=== PATIENT | female | born 1960 | race Caucasian/White ===

== ENCOUNTER 2017-03-26 08:05 | Outpatient (CLI) | payer MEDICARE, OTHER ==
--- OUTSIDE RECORDS SUMMARY | 2017-03-26 08:07 | XMS | Clinical Summary ---
:1960 Author Organization [facility] Address [address] [place] [address] Phone Care Team Providers Name Role Phone , Primary Care Provider Unavailable Allergies Not on File Current Medications Not on file Active Problems Not on file Social History Tobacco Use Types Packs/Day Years Used Date Never Assessed Sex Assigned at Date Recorded Not on file Last Filed Vital Signs Not on file Plan of Treatment Not on file Results Not on filefrom Last 3 Months
--- NOTE | 2017-03-26 10:37 | CT ---
CT ABDOMEN AND PELVIS NONCONTRAST: History: Abdominal pain. Abdominal hernia. K45.8 Comparison: 11-10-13 FINDINGS: The lung bases are now clear. Oral contrast is present within the distal esophagus. Cysts arise from the cortex of the kidneys. Each renal collecting system and ureter are decompressed, as is the urin poppy bladder. Oral contrast administered. There is no evidence of bowel obstruction. Lack of IV contr ast limits soft tissue evaluation. No bulky adenopathy is visible. Post-operative changes of the ant erior abdominal wall are apparent. No anterior abdominal wall hernia, inguinal hernia, or flank dann ia are apparent. Radiopaque densities at the left posterolateral flank soft tissues may represent re mnant from prior surgery. There are prominent degenerative changes of the lumbar spine. Post-operati ve changes of the pelvis are stable. IMPRESSION: 1. Incidental type findings are as detailed above. No evidence of abdominal wall hernia. 2. Gastroesophageal reflux. POS: [facility]
== END 2017-03-26 08:06 | disposition home or self-care (01) ==
LOC: CT 08:05
PROVIDERS: ATTEND Surgery
DX: K45.8 Other specified abdominal hernia without obstruction or gangrene (principal); K21.9 Gastro-esophageal reflux disease without esophagitis
CPT/HCPCS: 74176

== ENCOUNTER 2017-06-16 01:55 | Emergency (ER) | payer MEDICARE, OTHER ==
[2017-06-16] MEDS ORDERED: Lidocaine 1% w/Epinephrine 1:100K 20 ML VIAL ONE (02:13)
[2017-06-16] MEDS ORDERED: Lidocaine 1% 20 ML MDV ONE (02:13)
[2017-06-16] MEDS ORDERED: Amoxicillin/Potassium Clav 875 MG TAB ONE (03:15)
== END 2017-06-16 03:38 | disposition home or self-care (01) ==
LOC: SCSER 01:55
DX: S01.21XA Laceration without foreign body of nose, initial encounter (principal); E03.9 Hypothyroidism, unspecified; J45.909 Unspecified asthma, uncomplicated; F41.9 Anxiety disorder, unspecified; F31.9 Bipolar disorder, unspecified; W54.0XXA Bitten by dog, initial encounter
CPT/HCPCS: 12013; J2001

== ENCOUNTER 2022-08-26 07:46 | Inpatient (IN) | payer OTHER, MEDICARE ==
[2022-08-26] MEDS ORDERED: Ondansetron PF 4 MG/2 ML Vial IVP PRN (11:19)
[2022-08-26] MEDS ORDERED: Acetaminophen 325 MG TAB PO PRN (11:19)
[2022-08-26] MEDS ORDERED: Ipratropium/Albuterol 3 ML NEB NEB PRN (11:19)
[2022-08-26 11:57] VITALS: BMI 27.6
[2022-08-26 12:29] LABS: Hemoglobin 12.9 g/dL (12.0-16.0); Mean Corpuscular Hemoglobin 30.7 pg (27.0-31.0); Mean Corpuscular Volume 95.9 fl (78.0-98.0); Mean Platelet Volume 7.9 fL (7.4-10.4); Platelet Count 457 10x3/uL (130-400); RBC Distribution Width 13.7 % (11.5-14.5); Red Blood Cell (RBC) Count 4.21 mill/uL (4.20-5.40); White Blood Cell (WBC) Count 25.5 10x3/uL (4.8-10.8)
[2022-08-26 12:37] LABS: INR-International Normal Ratio 0.9; PTT 23.5 sec (22.9-36.1); Prothrombin Time 12.4 sec (12.0-14.7)
[2022-08-26] MEDS: Sodium Chloride 0.9% 1,000 ML IV SCH ×2 (12:46→22:16)
[2022-08-26 12:48] LABS: Band 22 % (5-11); Burr Cells SLIGHT = 2-5 cells (100X) (0-1/hpf); Lymphocytes 5 % (21-51); MDiff Complete? YES; Monocytes 5 % (0-10); Neutrophil 68 % (42-75); Platelet Morphology Comment Appears Increased
[2022-08-26 12:51] LABS: Acetaminophen Less than 10.0 mcg/mL (10.0-30.0); Alcohol Less than 10 mg/dL (Less than 10); Anion Gap 12 mmol/L (10-20); BUN (Urea Nitrogen) 9 mg/dL (9.8-20.1); Calc. Creatinine Clearance 99 mL/min (70-130); Carbon Dioxide 25 mmol/L (23-31); Chloride 109 mmol/L (98-107); Estimated GFR 99; Glucose 146 mg/dL (80-115); Magnesium 2.2 mg/dL (1.6-2.6); Phosphorus 3.6 mg/dL (2.3-4.7); Potassium 3.4 mmol/L (3.5-5.1); Salicylate Less than 8.0 mg/dL (15.0-30.0); Sodium 143 mmol/L (136-145)
[2022-08-26] MEDS ORDERED: Potassium Chloride 20 MEQ TAB PO SCH (13:00)
[2022-08-26] MEDS: Ipratropium/Albuterol 3 ML NEB NEB SCH ×2 (13:37→22:16)
[2022-08-26 13:51] LABS: Bilirubin Negative (Negative); Blood, Urine Negative (Negative); CAUTI Indications for Culture Alt mental st,lethar; Clarity Turbid (Clear); Glucose, Urine (Dipstick) Normal (Negative); Ketone, Urine Negative (Negative); Leukocyte Negative Leu/uL (Negative); Nitrite Negative (Negative); Protein, Urine (Dipstick) 10 mg/dL (Neg-Trace); RBC/HPF 0-3 HPF (0-3); Specific Gravity, Urine 1.017 (1.002-1.036); Squamous Epithelial 0-3 HPF (0-3); Urobilinogen Normal mg/dL (Less than 2); WBC/HPF 0-3 HPF (0-3)
[2022-08-26 13:52] LABS: Amphetamine Not Detected (NotDetected); Barbiturates Screen Not Detected (NotDetected); Benzodiazepine Screen Not Detected (NotDetected); Cocaine Metabolite Screen Not Detected (NotDetected); Methadone Not Detected (NotDetected); Methamphetamine Not Detected (NotDetected); Opiate Screen Detected (NotDetected); Oxycodone Screen Not Detected (NotDetected); Phencyclidine (PCP) Not Detected (NotDetected); THC/Cannabinoid Screen Not Detected (NotDetected); Tricyclic Screen Not Detected (NotDetected)
[2022-08-26 13:55] LABS: Bacteria/HPF 1+ HPF (None Seen)
[2022-08-26 13:56] LABS: Urine Culture Reflex No No
[2022-08-26] MEDS: Acetaminophen/Codeine 30-300mg Tablet PO SCH ×2 (18:21→23:47)
[2022-08-26] MEDS ORDERED: Morphine 2 MG/ML VIAL SLOW IVP PRN (20:17)
[2022-08-26] MEDS ORDERED: Melatonin 3 MG TAB PO SCH (22:00)
[2022-08-26] MEDS: DULoxetine 60 MG CAP PO SCH (22:14)
[2022-08-26] MEDS: Docusate 100 MG CAP PO SCH (22:15)
[2022-08-26] MEDS: Famotidine/PF 20 mg/2ml Vial SLOW IVP SCH (22:15)
[2022-08-26] MEDS: Gabapentin 300 MG CAP PO SCH (22:15)
[2022-08-26] MEDS: Fentanyl 100 MCG/2 ML VIAL SLOW IVP PRN (22:16)
[2022-08-27] MEDS: Ipratropium/Albuterol 3 ML NEB NEB SCH ×4 (01:35→20:33)
[2022-08-27] MEDS: Levothyroxine Sodium 88 MCG TAB PO SCH (05:13)
[2022-08-27] MEDS: Acetaminophen/Codeine 30-300mg Tablet PO SCH ×3 (05:13→17:47)
[2022-08-27] MEDS: Fentanyl 100 MCG/2 ML VIAL SLOW IVP PRN (05:13)
[2022-08-27 05:53] LABS: #Eosinphils 0.1 thou/uL (0.0-0.7); #Lymphocytes 1.8 thou/uL (1.20-3.40); #Monocytes 1.1 thou/uL (0.11-0.59); #Neutrophils 15.7 thou/uL (1.40-6.50); %Basophils 0.2 % (0.0-1.0); %Eosinophils 0.3 % (0.0-10.0); %Lymphocytes 9.4 % (21.0-51.0); %Monocytes 5.7 % (0.0-10.0); %Neutrophils 84.4 % (42.0-75.0); Hemoglobin 12.1 g/dL (12.0-16.0); Mean Corpuscular HGB CONC 31.6 g/dL (32.0-36.0); Mean Corpuscular Hemoglobin 30.3 pg (27.0-31.0); Mean Corpuscular Volume 95.8 fl (78.0-98.0); Mean Platelet Volume 8.1 fL (7.4-10.4); Platelet Count 409 10x3/uL (130-400); RBC Distribution Width 13.8 % (11.5-14.5); Red Blood Cell (RBC) Count 4.01 mill/uL (4.20-5.40); White Blood Cell (WBC) Count 18.6 10x3/uL (4.8-10.8)
[2022-08-27 06:07] LABS: Anion Gap 11 mmol/L (10-20); BUN (Urea Nitrogen) 7 mg/dL (9.8-20.1); Calc. Creatinine Clearance 129 mL/min (70-130); Calcium 8.1 mg/dL (7.8-10.44); Carbon Dioxide 22 mmol/L (23-31); Chloride 111 mmol/L (98-107); Estimated GFR 106; Glucose 97 mg/dL (80-115); Potassium 3.7 mmol/L (3.5-5.1); Sodium 140 mmol/L (136-145)
[2022-08-27] MEDS: Docusate 100 MG CAP PO SCH ×2 (09:03→21:57)
[2022-08-27] MEDS: Gabapentin 300 MG CAP PO SCH ×3 (09:04→21:57)
[2022-08-27] MEDS: Famotidine/PF 20 mg/2ml Vial SLOW IVP SCH (09:06)
[2022-08-27] MEDS: Cyclobenzaprine 10 MG TAB PO PRN (10:33)
[2022-08-27] MEDS: Lacosamide 50 mg Tablet PO SCH (10:34)
[2022-08-27] MEDS: Dextrose 5 %-0.45 % NaCl 1,000 ML IV SCH (21:51)
[2022-08-27] MEDS: clonazePAM 1 MG TAB PO SCH (21:57)
[2022-08-27] MEDS: OLANZapine 5 MG TAB PO SCH (21:59)
[2022-08-27] MEDS: tiZANidine HCl 4 MG TAB PO SCH (22:00)
[2022-08-27] MEDS: lamoTRIgine 100 MG TAB PO SCH (22:00)
[2022-08-27] MEDS: Melatonin 3 MG TAB PO SCH (22:01)
[2022-08-27] MEDS: DULoxetine 60 MG CAP PO SCH (22:02)
[2022-08-28] MEDS: Ipratropium/Albuterol 3 ML NEB NEB SCH ×4 (01:14→19:15)
[2022-08-28] MEDS: Acetaminophen/Codeine 30-300mg Tablet PO SCH ×4 (06:00→18:19)
[2022-08-28] MEDS ORDERED: Levothyroxine Sodium 88 MCG TAB PO SCH (06:00)
[2022-08-28] MEDS: Levothyroxine Sodium 88 MCG TAB PO SCH (07:52)
[2022-08-28] MEDS ORDERED: tiZANidine HCl 4 MG TAB PO PRN (08:38)
[2022-08-28 09:04] LABS: Hemoglobin 12.4 g/dL (12.0-16.0); Mean Corpuscular HGB CONC 35.8 g/dL (32.0-36.0); Mean Corpuscular Hemoglobin 34.4 pg (27.0-31.0); Mean Corpuscular Volume 96.2 fl (78.0-98.0); Mean Platelet Volume 8.9 fL (7.4-10.4); Platelet Count 261 10x3/uL (130-400); RBC Distribution Width 13.4 % (11.5-14.5); White Blood Cell (WBC) Count 22.2 10x3/uL (4.8-10.8)
[2022-08-28 09:25] LABS: Anion Gap 12 mmol/L (10-20); BUN (Urea Nitrogen) 11 mg/dL (9.8-20.1); Calc. Creatinine Clearance 132 mL/min (70-130); Carbon Dioxide 21 mmol/L (23-31); Chloride 107 mmol/L (98-107); Estimated GFR 107; Glucose 103 mg/dL (80-115); Magnesium 1.9 mg/dL (1.6-2.6); Phosphorus 2.9 mg/dL (2.3-4.7); Potassium 4.1 mmol/L (3.5-5.1); Sodium 136 mmol/L (136-145)
[2022-08-28] MEDS: clonazePAM 1 MG TAB PO SCH ×3 (09:27→20:18)
[2022-08-28] MEDS: Lacosamide 50 mg Tablet PO SCH (09:27)
[2022-08-28] MEDS: Docusate 100 MG CAP PO SCH ×2 (09:28→20:18)
[2022-08-28 09:41] LABS: Band 7 % (5-11); Burr Cells MODERATE= 6-15 cells (100X) (0-1/hpf); Lymphocytes 8 % (21-51); MDiff Complete? YES; Monocytes 4 % (0-10); Neutrophil 81 % (42-75); Platelet Morphology Comment Appears Adequate; Polychromasia SLIGHT = 2-3 cells (100X) (0-2/hpf)
[2022-08-28] MEDS ORDERED: diphenhydrAMINE 12.5 MG/5 ML UDCUP PO SCH (10:15)
[2022-08-28] MEDS ORDERED: PHOS-NAK 1 PKT PACK PO SCH (10:45)
[2022-08-28] MEDS: Gabapentin 300 MG CAP PO SCH ×3 (12:37→20:20)
[2022-08-28] MEDS: Dextrose 5 %-0.45 % NaCl 1,000 ML IV SCH (15:19)
[2022-08-28 15:34] LABS: Bilirubin Negative (Negative); Blood, Urine Negative (Negative); CAUTI Indications for Culture Dysuria,urgency,freq; Clarity Clear (Clear); Glucose, Urine (Dipstick) Normal (Negative); Ketone, Urine Negative (Negative); Leukocyte 25 Leu/uL (Negative); Nitrite Negative (Negative); Protein, Urine (Dipstick) Negative (Neg-Trace); RBC/HPF 0-3 HPF (0-3); Specific Gravity, Urine 1.013 (1.002-1.036); Squamous Epithelial 0-3 HPF (0-3); Urobilinogen Normal mg/dL (Less than 2); WBC/HPF 0-3 HPF (0-3)
[2022-08-28 15:35] LABS: Bacteria/HPF 1+ HPF (None Seen); Urine Culture Reflex No No
[2022-08-28] MEDS: Cyclobenzaprine 10 MG TAB PO PRN (15:59)
[2022-08-28] MEDS: Acetaminophen 325 MG TAB PO SCH (18:20)
[2022-08-28] MEDS: Rosuvastatin 10 MG TAB PO SCH ×2 (20:18→20:19)
[2022-08-28] MEDS: DULoxetine 60 MG CAP PO SCH (20:20)
[2022-08-28] MEDS: Melatonin 3 MG TAB PO SCH (21:52)
[2022-08-28] MEDS: OLANZapine 5 MG TAB PO SCH (21:52)
[2022-08-28] MEDS: lamoTRIgine 100 MG TAB PO SCH (21:52)
[2022-08-29] MEDS: Acetaminophen 325 MG TAB PO SCH ×4 (00:08→17:16)
[2022-08-29] MEDS: Acetaminophen/Codeine 30-300mg Tablet PO SCH ×2 (00:08→06:00)
[2022-08-29] MEDS: Ipratropium/Albuterol 3 ML NEB NEB SCH ×4 (00:43→18:11)
[2022-08-29] MEDS: Levothyroxine Sodium 88 MCG TAB PO SCH (05:59)
[2022-08-29 06:51] LABS: #Eosinphils 0.3 thou/uL (0.0-0.7); #Lymphocytes 2.3 thou/uL (1.20-3.40); #Monocytes 1.1 thou/uL (0.11-0.59); #Neutrophils 14.9 thou/uL (1.40-6.50); %Basophils 0.2 % (0.0-1.0); %Eosinophils 1.8 % (0.0-10.0); %Lymphocytes 12.3 % (21.0-51.0); %Monocytes 5.7 % (0.0-10.0); %Neutrophils 80.1 % (42.0-75.0); Mean Corpuscular HGB CONC 32.2 g/dL (32.0-36.0); Mean Corpuscular Hemoglobin 30.6 pg (27.0-31.0); Mean Corpuscular Volume 95.2 fl (78.0-98.0); Mean Platelet Volume 8.1 fL (7.4-10.4); Platelet Count 402 10x3/uL (130-400); Platelet Morphology Comment Appears Increased; RBC Distribution Width 13.1 % (11.5-14.5); White Blood Cell (WBC) Count 18.7 10x3/uL (4.8-10.8)
[2022-08-29 06:55] LABS: Anion Gap 13 mmol/L (10-20); BUN (Urea Nitrogen) 8 mg/dL (9.8-20.1); Calc. Creatinine Clearance 140 mL/min (70-130); Calcium 7.9 mg/dL (7.8-10.44); Carbon Dioxide 21 mmol/L (23-31); Chloride 108 mmol/L (98-107); Estimated GFR 108; Glucose 77 mg/dL (80-115); Magnesium 1.9 mg/dL (1.6-2.6); Phosphorus 3.1 mg/dL (2.3-4.7); Potassium 4.1 mmol/L (3.5-5.1); Sodium 138 mmol/L (136-145)
[2022-08-29] MEDS ORDERED: PHOS-NAK 1 PKT PACK PO SCH (08:00)
[2022-08-29] MEDS: Lacosamide 50 mg Tablet PO SCH (08:30)
[2022-08-29] MEDS: predniSONE 5 MG TAB PO SCH (08:30)
[2022-08-29] MEDS: Gabapentin 300 MG CAP PO SCH ×2 (08:30→20:06)
[2022-08-29] MEDS: Docusate 100 MG CAP PO SCH (08:30)
[2022-08-29] MEDS: clonazePAM 1 MG TAB PO SCH ×4 (08:30→20:08)
[2022-08-29] MEDS: tiZANidine HCl 4 MG TAB PO PRN (09:35)
[2022-08-29] MEDS ORDERED: diphenhydrAMINE 50 MG CAP PO PRN (11:30)
[2022-08-29] MEDS ORDERED: Moxifloxacin 0.5% Opth Drop 3 ML BOT L EYE SCH (12:00)
[2022-08-29] MEDS: Polymyxin B Sulf/Trimethoprim 10 ML OPHTH DROPS L EYE SCH ×6 (12:15→21:17)
[2022-08-29] MEDS: Moxifloxacin 0.5% Opth Drop 3 ML BOT L EYE SCH ×5 (14:23→21:17)
[2022-08-29] MEDS: prednisoLONE 1% Ophth Susp 5 ml Bottle L EYE SCH ×2 (15:17→20:08)
[2022-08-29] MEDS: VILAZODONE HCL 40 MG PO SCH ×3 (16:16→21:59)
[2022-08-29] MEDS: Lithium Carbonate 150 MG CAP PO SCH (17:16)
[2022-08-29] MEDS ORDERED: predniSONE 20 MG TAB PO SCH (19:30)
[2022-08-29] MEDS: Acetaminophen/Codeine 30-300mg Tablet PO PRN (20:03)
[2022-08-29] MEDS: OLANZapine 5 MG TAB PO SCH (20:04)
[2022-08-29] MEDS: lamoTRIgine 100 MG TAB PO SCH (20:04)
[2022-08-29] MEDS: Mycophenolate 250 MG CAP PO SCH (20:05)
[2022-08-29] MEDS: Senokot S 8.6-50 MG TAB PO SCH (20:08)
[2022-08-29] MEDS ORDERED: Nitrofurantoin Monohyd/M-Cryst 100 MG CAP PO SCH (21:00)
[2022-08-30] MEDS: Acetaminophen 325 MG TAB PO SCH ×5 (00:50→23:42)
[2022-08-30] MEDS ORDERED: predniSONE 20 MG TAB PO SCH ×2 (01:00→07:00)
[2022-08-30] MEDS: Ipratropium/Albuterol 3 ML NEB NEB SCH ×5 (03:01→23:35)
[2022-08-30] MEDS: Liothyronine Sodium 5 MCG TAB PO SCH (06:46)
[2022-08-30] MEDS: Levothyroxine Sodium 88 MCG TAB PO SCH (06:46)
[2022-08-30] MEDS: Moxifloxacin 0.5% Opth Drop 3 ML BOT L EYE SCH ×9 (06:52→23:43)
[2022-08-30] MEDS: Polymyxin B Sulf/Trimethoprim 10 ML OPHTH DROPS L EYE SCH ×9 (06:52→23:43)
[2022-08-30] MEDS ORDERED: diphenhydrAMINE 50 MG CAP PO SCH (07:00)
[2022-08-30 07:22] LABS: #Lymphocytes 0.6 thou/uL (1.20-3.40); #Monocytes 0.1 thou/uL (0.11-0.59); #Neutrophils 14.8 thou/uL (1.40-6.50); %Basophils 0.2 % (0.0-1.0); %Eosinophils 0.2 % (0.0-10.0); %Lymphocytes 3.6 % (21.0-51.0); %Monocytes 0.6 % (0.0-10.0); %Neutrophils 95.5 % (42.0-75.0); Hemoglobin 11.4 g/dL (12.0-16.0); Mean Corpuscular Hemoglobin 30.5 pg (27.0-31.0); Mean Corpuscular Volume 95.5 fl (78.0-98.0); Platelet Count 511 10x3/uL (130-400); RBC Distribution Width 13.1 % (11.5-14.5); Red Blood Cell (RBC) Count 3.74 mill/uL (4.20-5.40); White Blood Cell (WBC) Count 15.5 10x3/uL (4.8-10.8)
[2022-08-30] MEDS ORDERED: Morphine 2 MG/ML VIAL SLOW IVP SCH (09:15)
[2022-08-30] MEDS: Acetaminophen/Codeine 30-300mg Tablet PO PRN (09:39)
[2022-08-30] MEDS: Amlodipine 10 MG TAB PO SCH (10:06)
[2022-08-30] MEDS: Gabapentin 300 MG CAP PO SCH ×2 (10:27→21:11)
[2022-08-30] MEDS: clonazePAM 1 MG TAB PO SCH ×3 (10:28→20:58)
[2022-08-30] MEDS: tiZANidine HCl 4 MG TAB PO PRN ×2 (10:28→23:46)
[2022-08-30] MEDS: Lacosamide 50 mg Tablet PO SCH (10:45)
[2022-08-30] MEDS: Mycophenolate 250 MG CAP PO SCH ×2 (10:45→21:00)
[2022-08-30] MEDS: Lithium Carbonate 150 MG CAP PO SCH ×2 (10:45→17:29)
[2022-08-30] MEDS: Polyethylene Glycol 3350 17 GM Packet PO SCH (10:46)
[2022-08-30] MEDS: Senokot S 8.6-50 MG TAB PO SCH ×2 (10:46→20:58)
[2022-08-30] MEDS: prednisoLONE 1% Ophth Susp 5 ml Bottle L EYE SCH ×3 (10:48→20:56)
[2022-08-30] MEDS ORDERED: Iopamidol-M 300 61% 15 ML VIAL ONE (17:36)
[2022-08-30] MEDS: lamoTRIgine 100 MG TAB PO SCH (20:57)
[2022-08-30] MEDS: Rosuvastatin 10 MG TAB PO SCH (20:58)
[2022-08-30] MEDS: OLANZapine 5 MG TAB PO SCH (20:58)
[2022-08-30] MEDS: VILAZODONE HCL 40 MG PO SCH (21:18)
[2022-08-31] MEDS: Liothyronine Sodium 5 MCG TAB PO SCH (06:11)
[2022-08-31] MEDS: Moxifloxacin 0.5% Opth Drop 3 ML BOT L EYE SCH ×9 (06:11→22:02)
[2022-08-31] MEDS: Levothyroxine Sodium 88 MCG TAB PO SCH (06:11)
[2022-08-31] MEDS: Acetaminophen 325 MG TAB PO SCH ×4 (06:11→23:41)
[2022-08-31] MEDS: Polymyxin B Sulf/Trimethoprim 10 ML OPHTH DROPS L EYE SCH ×9 (06:12→22:02)
[2022-08-31] MEDS: Ipratropium/Albuterol 3 ML NEB NEB SCH ×3 (06:54→18:52)
[2022-08-31] MEDS: Lithium Carbonate 150 MG CAP PO SCH ×2 (08:14→17:58)
[2022-08-31] MEDS: Polyethylene Glycol 3350 17 GM Packet PO SCH (09:21)
[2022-08-31] MEDS: Senokot S 8.6-50 MG TAB PO SCH ×3 (09:21→21:48)
[2022-08-31] MEDS: Acetaminophen/Codeine 30-300mg Tablet PO PRN ×2 (09:23→20:01)
[2022-08-31] MEDS: Amlodipine 10 MG TAB PO SCH (09:24)
[2022-08-31] MEDS: clonazePAM 1 MG TAB PO SCH ×3 (09:25→21:48)
[2022-08-31] MEDS: Gabapentin 300 MG CAP PO SCH ×2 (09:26→21:47)
[2022-08-31] MEDS: Lacosamide 50 mg Tablet PO SCH (09:26)
[2022-08-31] MEDS: Mycophenolate 250 MG CAP PO SCH ×2 (09:27→21:47)
[2022-08-31] MEDS: prednisoLONE 1% Ophth Susp 5 ml Bottle L EYE SCH ×3 (09:31→21:49)
[2022-08-31] MEDS: predniSONE 5 MG TAB PO SCH (09:52)
[2022-08-31] MEDS: tiZANidine HCl 4 MG TAB PO PRN ×2 (12:00→22:02)
[2022-08-31] MEDS: lamoTRIgine 100 MG TAB PO SCH (21:45)
[2022-08-31] MEDS: OLANZapine 5 MG TAB PO SCH (21:46)
[2022-08-31] MEDS: Rosuvastatin 10 MG TAB PO SCH (21:47)
[2022-08-31] MEDS: VILAZODONE HCL 40 MG PO SCH (22:10)
[2022-09-01] MEDS: Ipratropium/Albuterol 3 ML NEB NEB SCH ×4 (03:40→21:09)
[2022-09-01] MEDS: Acetaminophen 325 MG TAB PO SCH ×4 (06:53→23:17)
[2022-09-01] MEDS: Levothyroxine Sodium 88 MCG TAB PO SCH (06:53)
[2022-09-01] MEDS: Liothyronine Sodium 5 MCG TAB PO SCH (06:53)
[2022-09-01] MEDS: Moxifloxacin 0.5% Opth Drop 3 ML BOT L EYE SCH ×9 (06:54→23:09)
[2022-09-01] MEDS: Polymyxin B Sulf/Trimethoprim 10 ML OPHTH DROPS L EYE SCH ×9 (06:54→23:09)
[2022-09-01] MEDS: Acetaminophen/Codeine 30-300mg Tablet PO PRN ×2 (06:59→15:05)
[2022-09-01] MEDS: Lacosamide 50 mg Tablet PO SCH (09:31)
[2022-09-01] MEDS: Gabapentin 300 MG CAP PO SCH ×2 (09:31→19:56)
[2022-09-01] MEDS: Lithium Carbonate 150 MG CAP PO SCH ×2 (09:31→16:40)
[2022-09-01] MEDS: Senokot S 8.6-50 MG TAB PO SCH ×3 (09:33→20:00)
[2022-09-01] MEDS: Mycophenolate 250 MG CAP PO SCH ×2 (09:33→19:59)
[2022-09-01] MEDS: Amlodipine 10 MG TAB PO SCH (09:34)
[2022-09-01] MEDS: predniSONE 5 MG TAB PO SCH (09:35)
[2022-09-01] MEDS: clonazePAM 1 MG TAB PO SCH ×3 (09:35→19:57)
[2022-09-01] MEDS: Polyethylene Glycol 3350 17 GM Packet PO SCH ×2 (09:35→09:41)
[2022-09-01] MEDS: prednisoLONE 1% Ophth Susp 5 ml Bottle L EYE SCH ×3 (09:36→20:11)
[2022-09-01] MEDS: lamoTRIgine 100 MG TAB PO SCH (19:57)
[2022-09-01] MEDS: tiZANidine HCl 4 MG TAB PO PRN (19:57)
[2022-09-01] MEDS: OLANZapine 5 MG TAB PO SCH (19:58)
[2022-09-01] MEDS: Rosuvastatin 10 MG TAB PO SCH (19:59)
[2022-09-01] MEDS: VILAZODONE HCL 40 MG PO SCH (20:10)
[2022-09-02] MEDS: Ipratropium/Albuterol 3 ML NEB NEB SCH ×4 (00:32→18:59)
[2022-09-02] MEDS: Melatonin 3 MG TAB PO PRN ×2 (00:52→21:59)
[2022-09-02] MEDS: Acetaminophen 325 MG TAB PO SCH ×4 (00:52→16:49)
[2022-09-02] MEDS: Acetaminophen/Codeine 30-300mg Tablet PO PRN ×3 (03:21→20:08)
[2022-09-02] MEDS: Levothyroxine Sodium 88 MCG TAB PO SCH (06:31)
[2022-09-02] MEDS: Liothyronine Sodium 5 MCG TAB PO SCH (06:31)
[2022-09-02] MEDS: Polymyxin B Sulf/Trimethoprim 10 ML OPHTH DROPS L EYE SCH ×9 (06:34→23:07)
[2022-09-02] MEDS: Moxifloxacin 0.5% Opth Drop 3 ML BOT L EYE SCH ×9 (06:34→23:07)
[2022-09-02] MEDS: Lithium Carbonate 150 MG CAP PO SCH ×2 (09:29→16:50)
[2022-09-02] MEDS: Gabapentin 300 MG CAP PO SCH ×2 (09:29→20:07)
[2022-09-02] MEDS: Mycophenolate 250 MG CAP PO SCH ×2 (09:29→20:06)
[2022-09-02] MEDS: Senokot S 8.6-50 MG TAB PO SCH ×2 (09:30→20:08)
[2022-09-02] MEDS: Lacosamide 50 mg Tablet PO SCH (09:30)
[2022-09-02] MEDS: predniSONE 5 MG TAB PO SCH (09:30)
[2022-09-02] MEDS: prednisoLONE 1% Ophth Susp 5 ml Bottle L EYE SCH ×3 (09:30→20:06)
[2022-09-02] MEDS: clonazePAM 1 MG TAB PO SCH ×3 (09:33→20:06)
[2022-09-02] MEDS: Polyethylene Glycol 3350 17 GM Packet PO SCH (09:46)
[2022-09-02] MEDS: Amlodipine 10 MG TAB PO SCH (09:46)
[2022-09-02] MEDS: lamoTRIgine 100 MG TAB PO SCH (20:07)
[2022-09-02] MEDS: OLANZapine 5 MG TAB PO SCH (20:07)
[2022-09-02] MEDS: Rosuvastatin 10 MG TAB PO SCH (20:07)
[2022-09-02] MEDS: VILAZODONE HCL 40 MG PO SCH (20:08)
[2022-09-03] MEDS: Ipratropium/Albuterol 3 ML NEB NEB SCH ×4 (00:16→19:52)
[2022-09-03] MEDS: Acetaminophen 325 MG TAB PO SCH ×4 (00:38→17:12)
[2022-09-03] MEDS: Liothyronine Sodium 5 MCG TAB PO SCH (05:52)
[2022-09-03] MEDS: Levothyroxine Sodium 88 MCG TAB PO SCH (05:52)
[2022-09-03] MEDS: Polymyxin B Sulf/Trimethoprim 10 ML OPHTH DROPS L EYE SCH ×9 (06:14→22:24)
[2022-09-03] MEDS: Moxifloxacin 0.5% Opth Drop 3 ML BOT L EYE SCH ×9 (06:14→22:23)
[2022-09-03 07:07] LABS: #Eosinphils 0.3 thou/uL (0.0-0.7); #Lymphocytes 2.5 thou/uL (1.20-3.40); #Monocytes 1.1 thou/uL (0.11-0.59); #Neutrophils 6.4 thou/uL (1.40-6.50); %Basophils 0.3 % (0.0-1.0); %Lymphocytes 24.1 % (21.0-51.0); %Monocytes 10.5 % (0.0-10.0); %Neutrophils 62.1 % (42.0-75.0); Hemoglobin 11.5 g/dL (12.0-16.0); Mean Corpuscular HGB CONC 31.8 g/dL (32.0-36.0); Mean Corpuscular Hemoglobin 30.7 pg (27.0-31.0); Mean Corpuscular Volume 96.7 fl (78.0-98.0); Mean Platelet Volume 7.8 fL (7.4-10.4); Platelet Count 657 10x3/uL (130-400); RBC Distribution Width 13.4 % (11.5-14.5); Red Blood Cell (RBC) Count 3.74 mill/uL (4.20-5.40); White Blood Cell (WBC) Count 10.2 10x3/uL (4.8-10.8)
[2022-09-03] MEDS: prednisoLONE 1% Ophth Susp 5 ml Bottle L EYE SCH ×3 (08:27→20:56)
[2022-09-03] MEDS: Lacosamide 50 mg Tablet PO SCH (08:28)
[2022-09-03] MEDS: Lithium Carbonate 150 MG CAP PO SCH ×2 (08:28→17:12)
[2022-09-03] MEDS: clonazePAM 1 MG TAB PO SCH (08:29)
[2022-09-03] MEDS: Mycophenolate 250 MG CAP PO SCH ×2 (08:29→22:17)
[2022-09-03] MEDS: predniSONE 5 MG TAB PO SCH (08:29)
[2022-09-03] MEDS: Gabapentin 300 MG CAP PO SCH ×2 (08:30→20:54)
[2022-09-03] MEDS: Amlodipine 10 MG TAB PO SCH (08:30)
[2022-09-03] MEDS: Senokot S 8.6-50 MG TAB PO SCH ×2 (08:31→21:10)
[2022-09-03] MEDS: Polyethylene Glycol 3350 17 GM Packet PO SCH (08:31)
[2022-09-03] MEDS ORDERED: clonazePAM 0.5 MG TAB PO SCH (10:15)
[2022-09-03 14:00] LABS: Anion Gap 11 mmol/L (10-20); BUN (Urea Nitrogen) 11 mg/dL (9.8-20.1); Calc. Creatinine Clearance 118 mL/min (70-130); Calcium 8.4 mg/dL (7.8-10.44); Carbon Dioxide 27 mmol/L (23-31); Chloride 106 mmol/L (98-107); Estimated GFR 104; Glucose 105 mg/dL (80-115); Magnesium 2.1 mg/dL (1.6-2.6); Phosphorus 4.2 mg/dL (2.3-4.7); Potassium 4.1 mmol/L (3.5-5.1); Sodium 140 mmol/L (136-145)
[2022-09-03] MEDS: clonazePAM 0.5 MG TAB PO SCH ×2 (14:03→20:55)
[2022-09-03] MEDS ORDERED: clonazePAM 1 MG TAB PO SCH (15:00)
[2022-09-03] MEDS: Rosuvastatin 10 MG TAB PO SCH (20:55)
[2022-09-03] MEDS: Acetaminophen/Codeine 30-300mg Tablet PO PRN (21:18)
[2022-09-03] MEDS: Melatonin 3 MG TAB PO PRN (21:18)
[2022-09-03] MEDS: OLANZapine 5 MG TAB PO SCH (22:17)
[2022-09-03] MEDS: lamoTRIgine 100 MG TAB PO SCH (22:17)
[2022-09-03] MEDS: VILAZODONE HCL 40 MG PO SCH (22:19)
[2022-09-04] MEDS: Acetaminophen 325 MG TAB PO SCH ×3 (00:41→11:30)
[2022-09-04] MEDS: Ipratropium/Albuterol 3 ML NEB NEB SCH ×3 (03:20→13:44)
[2022-09-04] MEDS: Levothyroxine Sodium 88 MCG TAB PO SCH (05:21)
[2022-09-04] MEDS: Liothyronine Sodium 5 MCG TAB PO SCH (05:21)
[2022-09-04] MEDS: Polymyxin B Sulf/Trimethoprim 10 ML OPHTH DROPS L EYE SCH ×5 (05:22→14:40)
[2022-09-04] MEDS: Moxifloxacin 0.5% Opth Drop 3 ML BOT L EYE SCH ×5 (05:22→14:40)
[2022-09-04] MEDS: Amlodipine 10 MG TAB PO SCH (08:56)
[2022-09-04] MEDS: Mycophenolate 250 MG CAP PO SCH (08:56)
[2022-09-04] MEDS: clonazePAM 0.5 MG TAB PO SCH (08:56)
[2022-09-04] MEDS: Lacosamide 50 mg Tablet PO SCH (08:57)
[2022-09-04] MEDS: Lithium Carbonate 150 MG CAP PO SCH (08:57)
[2022-09-04] MEDS: predniSONE 5 MG TAB PO SCH (08:57)
[2022-09-04] MEDS: Gabapentin 300 MG CAP PO SCH (08:57)
[2022-09-04] MEDS: Polyethylene Glycol 3350 17 GM Packet PO SCH (08:58)
[2022-09-04] MEDS: Senokot S 8.6-50 MG TAB PO SCH (08:58)
[2022-09-04] MEDS: prednisoLONE 1% Ophth Susp 5 ml Bottle L EYE SCH ×2 (08:58→14:40)
[2022-09-04 11:29] VITALS: TEMP 98.2
[2022-09-04] MEDS ORDERED: clonazePAM 0.5 MG TAB PO SCH (15:00)
[2022-09-04 15:37] VITALS: BP 98/61
== END 2022-09-04 16:00 | DRG 964 ==
LOC: ERS 07:46 → SJJU 09:52 → OBSVTOIN 08-28 10:51 → SURG A 09-01 19:01
PROVIDERS: ADMIT Surgery; ATTEND Surgery
DX: S14.122A Central cord syndrome at C2 level of cervical spinal cord, initial encounter (principal); N39.0 Urinary tract infection, site not specified; S27.0XXA Traumatic pneumothorax, initial encounter; S22.32XA Fracture of one rib, left side, initial encounter for closed fracture; S12.200A Unspecified displaced fracture of third cervical vertebra, initial encounter for closed fracture; S12.100A Unspecified displaced fracture of second cervical vertebra, initial encounter for closed fracture; S12.600A Unspecified displaced fracture of seventh cervical vertebra, initial encounter for closed fracture; Z20.822 Contact with and (suspected) exposure to COVID-19; E03.9 Hypothyroidism, unspecified; K45.8 Other specified abdominal hernia without obstruction or gangrene; B95.2 Enterococcus as the cause of diseases classified elsewhere; J45.909 Unspecified asthma, uncomplicated; S62.112A Displaced fracture of triquetrum [cuneiform] bone, left wrist, initial encounter for closed fracture; S62.162A Displaced fracture of pisiform, left wrist, initial encounter for closed fracture; S62.001A Unspecified fracture of navicular [scaphoid] bone of right wrist, initial encounter for closed fracture; M19.90 Unspecified osteoarthritis, unspecified site; Z89.512 Acquired absence of left leg below knee; Z90.710 Acquired absence of both cervix and uterus; Z90.49 Acquired absence of other specified parts of digestive tract; Z88.1 Allergy status to other antibiotic agents; Z91.041 Radiographic dye allergy status; Z91.013 Allergy to seafood; Z88.8 Allergy status to other drugs, medicaments and biological substances; Z91.018 Allergy to other foods; V43.52XA Car driver injured in collision with other type car in traffic accident, initial encounter; Y92.410 Unspecified street and highway as the place of occurrence of the external cause
CPT/HCPCS: 36415; 62302; 70450; 71045; 71250; 72040; 72125; 72126; 74177; 80048; 80306; 80307; 81001; 83735; 84100; 84146; 85025; 85610; 85730; 86850; 86900; 86901; 87077; 87086; 87186; 87811; 94640; 96372; 96374; 96375; 96376; G0378; J1650; J2272; J3010; J7042; J7050; J7512; J7517; J7620; L0174; P9045; Q9967; S0028; U0003; U0005

== ENCOUNTER 2023-01-25 14:59 | Outpatient (CLI) | payer MEDICARE, OTHER ==
[2023-01-25 15:53] LABS: Hemoglobin 12.5 g/dL (12.0-15.5); Mean Corpuscular HGB CONC 32.1 g/dL (32.0-36.0); Mean Corpuscular Hemoglobin 29.1 pg (27.0-33.0); Mean Corpuscular Volume 90.5 fl (81.6-98.3); Mean Platelet Volume 10.1 fl (7.4-10.4); Platelet Count 572 10x3/uL (150-450); RBC Distribution Width 17.4 % (11.5-14.5); White Blood Cell (WBC) Count 9.1 10x3/uL (3.5-10.5)
[2023-01-25 16:03] LABS: PTT 25.9 sec (22.0-33.0); Prothrombin Time 10.5 sec (9.5-12.1)
== END 2023-01-25 15:00 | disposition home or self-care (01) ==
LOC: LABBT 14:59
PROVIDERS: ATTEND Neurological Surgery
DX: Z01.818 Encounter for other preprocedural examination (principal); M50.01 Cervical disc disorder with myelopathy, high cervical region; M50.021 Cervical disc disorder at C4-C5 level with myelopathy
CPT/HCPCS: 85027; 85610; 85730

== ENCOUNTER 2023-01-25 15:00 | Inpatient (IN) | payer MEDICARE, OTHER ==
[2023-01-29] MEDS ORDERED: Vancomycin 1 GM VIAL ONE (05:52)
[2023-01-29] MEDS ORDERED: Bacitracin Zinc Ointment 30 gm TUBE ONE (05:52)
[2023-01-29] MEDS ORDERED: Thrombin 5000 UNITS/5 ML VIAL ONE (05:52)
[2023-01-29] MEDS ORDERED: EPINEPHrine 1 MG/ML AMP ONE ×2 (06:10)
[2023-01-29] MEDS ORDERED: Bupivacaine PF 0.5% 30 ML VIAL ONE ×2 (06:10→06:34)
[2023-01-29] MEDS ORDERED: Lidocaine 1% (PF) 30 ML VIAL ONE (06:10)
[2023-01-29] MEDS ORDERED: Phenylephrine 10 MG/ML VIAL ONE ×2 (06:22→11:18)
[2023-01-29] MEDS ORDERED: Dexmedetomidine 200 MCG/2 ML VIAL ONE (06:22)
[2023-01-29] MEDS ORDERED: Fentanyl 250 MCG/5 ML VIAL ONE (06:22)
[2023-01-29] MEDS ORDERED: Mag-Al 1200 mg/1200 mg/30 ML UDCUP PO PRN (06:31)
[2023-01-29] MEDS ORDERED: Acetaminophen/Codeine 30-300mg Tablet PO PRN (06:31)
[2023-01-29] MEDS ORDERED: Milk Of Magnesia 30 ML UDCUP PO PRN (06:31)
[2023-01-29] MEDS ORDERED: Prochlorperazine 10 MG/2 ML VIAL IM PRN (06:31)
[2023-01-29] MEDS ORDERED: Ondansetron PF 4 MG/2 ML Vial IVP PRN (06:31)
[2023-01-29] MEDS ORDERED: Phenol 118 ML BOT PO PRN (06:35)
[2023-01-29] MEDS ORDERED: Docusate 100 MG CAP PO PRN (06:38)
[2023-01-29] MEDS ORDERED: Sodium Chloride 0.9% 100 ML ONE (06:52)
[2023-01-29] MEDS ORDERED: CEFAZOLIN 2 GM VIAL ONE (06:52)
[2023-01-29] MEDS ORDERED: Albuterol HFA (OR) 200 PUFF INH ONE (07:02)
[2023-01-29] MEDS ORDERED: Vecuronium 10 MG VIAL ONE (07:13)
[2023-01-29] MEDS ORDERED: PHENYLEPHRINE-NS 100 MCG/ML 10 ML SYRINGE ONE (07:13)
[2023-01-29] MEDS ORDERED: Esmolol 100 MG/10 ML VIAL ONE (07:13)
[2023-01-29] MEDS ORDERED: Succinylcholine 200 MG/10 ml SYRINGE FS ONE (07:13)
[2023-01-29] MEDS ORDERED: Ondansetron PF 4 MG/2 ML Vial ONE (07:13)
[2023-01-29] MEDS ORDERED: PROPOFOL 200 MG/20 ML VIAL ONE (07:13)
[2023-01-29] MEDS ORDERED: Metoprolol Tartrate 5 MG/5 ML VIAL ONE (07:13)
[2023-01-29] MEDS ORDERED: Rocuronium Bromide 10 MG/ML (10ML VIAL) ONE (07:13)
[2023-01-29] MEDS ORDERED: Lidocaine 1% PF 5 ML VIAL ONE (07:13)
[2023-01-29] MEDS ORDERED: Dexamethasone 20 MG/5 ML VIAL ONE (07:13)
[2023-01-29] MEDS ORDERED: fentaNYL 50 mcg/mL 1 mL Vial ONE ×5 (12:18→18:17)
[2023-01-29] MEDS ORDERED: Sevoflurane 250 ML INH ANEST BOTTLE ONE (14:32)
[2023-01-29] MEDS ORDERED: SUGAMMADEX SODIUM 200 MG/2 ML VIAL ONE (16:21)
[2023-01-29] MEDS ORDERED: PROPOFOL 20 ML ONE ×2 (16:36→16:48)
[2023-01-29] MEDS ORDERED: Ondansetron HCl/PF 4 MG/2 ML Vial IVP PRN (17:14)
[2023-01-29] MEDS ORDERED: HYDROmorphone 2 MG/ML VIAL SLOW IVP PRN (17:14)
[2023-01-29] MEDS ORDERED: Promethazine HCl 25 MG/ML VIAL IM PRN (17:14)
[2023-01-29] MEDS ORDERED: HYDROmorphone 0.5 MG/0.5 ML SYRINGE ONE ×2 (17:40→18:04)
[2023-01-29] MEDS ORDERED: tiZANidine HCl 4 MG TAB ONE (19:36)
[2023-01-29] MEDS: tiZANidine HCl 4 MG TAB PO PRN (19:39)
[2023-01-29] MEDS: CEFAZOLIN 2 GM in Sodium Chloride 0.9% 100 ML IVPB SCH ×2 (20:39→23:24)
[2023-01-29 21:33] LABS: #Monocytes 1.3 thou/uL (0.11-0.59); %Basophils 0.1 % (0.0-1.0); %Lymphocytes 16.4 % (21.0-51.0); %Monocytes 8.4 % (0.0-10.0); Hematocrit 29.6 % (36.0-47.0); Hemoglobin 9.4 g/dL (12.0-16.0); Mean Corpuscular HGB CONC 31.8 g/dL (32.0-36.0); Mean Corpuscular Hemoglobin 29.1 pg (27.0-31.0); Mean Corpuscular Volume 91.6 fl (78.0-98.0); Mean Platelet Volume 10.2 fL (7.4-10.4); Platelet Count 335 10x3/uL (130-400); RBC Distribution Width 17.9 % (11.5-14.5); Red Blood Cell (RBC) Count 3.23 mill/uL (4.20-5.40); White Blood Cell (WBC) Count 14.8 10x3/uL (4.8-10.8)
[2023-01-29 21:51] LABS: ALT (SGPT) 9 U/L (8-55); AST (SGOT) 20 U/L (5-34); Alkaline Phosphatase 66 U/L (40-110); Anion Gap 13 mmol/L (10-20); BUN (Urea Nitrogen) 7 mg/dL (9.8-20.1); Bilirubin, Total 0.2 mg/dL (0.2-1.2); Calc. Creatinine Clearance 93 mL/min (70-130); Calcium 7.4 mg/dL (7.8-10.44); Carbon Dioxide 19 mmol/L (23-31); Chloride 112 mmol/L (98-107); Estimated GFR 100; Glucose 124 mg/dL (80-115); Potassium 3.7 mmol/L (3.5-5.1); Sodium 140 mmol/L (136-145)
[2023-01-29] MEDS ORDERED: Melatonin 3 MG TAB PO PRN (22:35)
[2023-01-29] MEDS ORDERED: lamoTRIgine 100 MG TAB PO SCH (22:45)
[2023-01-29 22:49] VITALS: BMI 25.4
[2023-01-29] MEDS ORDERED: Lacosamide 50 mg Tablet PO SCH (23:00)
[2023-01-29] MEDS ORDERED: Sodium Chloride 0.9% 500 ML IV SCH (23:15)
[2023-01-29] MEDS: HYDROcodone/Acetaminophen 10/325 mg Tablet PO PRN (23:58)
[2023-01-30] MEDS: HYDROcodone/Acetaminophen 10/325 mg Tablet PO PRN ×2 (04:20→08:42)
[2023-01-30 06:07] LABS: Anion Gap 16 mmol/L (10-20); BUN (Urea Nitrogen) 6 mg/dL (9.8-20.1); Calc. Creatinine Clearance 100 mL/min (70-130); Calcium 7.4 mg/dL (7.8-10.44); Carbon Dioxide 17 mmol/L (23-31); Chloride 112 mmol/L (98-107); Estimated GFR 102; Glucose 103 mg/dL (80-115); Potassium 3.8 mmol/L (3.5-5.1); Sodium 141 mmol/L (136-145)
[2023-01-30] MEDS: Levothyroxine Sodium 88 MCG TAB PO SCH (06:12)
[2023-01-30] MEDS: Mycophenolate 250 MG CAP PO SCH ×2 (08:43→20:40)
[2023-01-30] MEDS: Liothyronine Sodium 5 MCG TAB PO SCH (08:43)
[2023-01-30] MEDS: Lithium Carbonate 150 MG CAP PO SCH ×2 (08:43→20:39)
[2023-01-30] MEDS: Rosuvastatin 10 MG TAB PO SCH (08:43)
[2023-01-30] MEDS: tiZANidine HCl 4 MG TAB PO PRN (10:09)
[2023-01-30] MEDS: Lacosamide 50 mg Tablet PO SCH ×2 (10:09→20:57)
[2023-01-30] MEDS ORDERED: Morphine 4 MG/ML VIAL SLOW IVP PRN (11:05)
[2023-01-30] MEDS ORDERED: diphenhydrAMINE 25 MG CAP PO PRN (12:10)
[2023-01-30 12:19] LABS: #Basophils 0.1 thou/uL (0.0-0.2); #Monocytes 1.4 thou/uL (0.11-0.59); #Neutrophils 10.7 thou/uL (1.40-6.50); %Basophils 0.3 % (0.0-1.0); %Eosinophils 0.2 % (0.0-10.0); %Lymphocytes 15.6 % (21.0-51.0); %Monocytes 9.5 % (0.0-10.0); %Neutrophils 74.1 % (42.0-75.0); Hematocrit 30.3 % (36.0-47.0); Hemoglobin 9.4 g/dL (12.0-16.0); Mean Corpuscular Volume 93.5 fl (78.0-98.0); Mean Platelet Volume 10.3 fL (7.4-10.4); Platelet Count 337 10x3/uL (130-400); RBC Distribution Width 18.2 % (11.5-14.5); Red Blood Cell (RBC) Count 3.24 mill/uL (4.20-5.40); White Blood Cell (WBC) Count 14.5 10x3/uL (4.8-10.8)
[2023-01-30] MEDS: HYDROmorphone 0.5 MG/0.5 ML SYRINGE SLOW IVP PRN (14:35)
[2023-01-30] MEDS: clonazePAM 0.5 MG TAB PO SCH ×2 (14:35→20:39)
[2023-01-30] MEDS ORDERED: Acetaminophen/Codeine 30-300mg Tablet PO PRN (15:09)
[2023-01-30] MEDS: HYDROcodone/Acetaminophen 7.5/325 mg Tablet PO PRN ×2 (16:02→20:43)
[2023-01-30] MEDS: Gabapentin 300 MG CAP PO SCH (20:36)
[2023-01-30] MEDS: OLANZapine 5 MG TAB PO SCH (20:36)
[2023-01-30] MEDS: lamoTRIgine 100 MG TAB PO SCH (20:38)
[2023-01-30] MEDS: Nitrofurantoin Macrocrystal 50 MG CAP PO SCH (20:41)
[2023-01-30] MEDS ORDERED: Vilazodone Hcl [Viibryd] 40 MG Tablet PO SCH (23:00)
[2023-01-31] MEDS: HYDROcodone/Acetaminophen 7.5/325 mg Tablet PO PRN ×5 (04:21→22:44)
[2023-01-31 05:19] LABS: #Basophils 0.1 thou/uL (0.0-0.2); #Eosinphils 0.2 thou/uL (0.0-0.7); #Neutrophils 15.3 thou/uL (1.40-6.50); %Basophils 0.3 % (0.0-1.0); %Eosinophils 0.7 % (0.0-10.0); %Lymphocytes 13.6 % (21.0-51.0); %Monocytes 9.8 % (0.0-10.0); Hematocrit 35.9 % (36.0-47.0); Hemoglobin 11.2 g/dL (12.0-16.0); Mean Corpuscular HGB CONC 31.2 g/dL (32.0-36.0); Mean Corpuscular Hemoglobin 29.3 pg (27.0-31.0); Platelet Count 369 10x3/uL (130-400); RBC Distribution Width 17.5 % (11.5-14.5); Red Blood Cell (RBC) Count 3.82 mill/uL (4.20-5.40); White Blood Cell (WBC) Count 20.4 10x3/uL (4.8-10.8)
[2023-01-31] MEDS: Levothyroxine Sodium 88 MCG TAB PO SCH (05:42)
[2023-01-31] MEDS: Lithium Carbonate 150 MG CAP PO SCH ×2 (09:10→20:13)
[2023-01-31] MEDS: Gabapentin 300 MG CAP PO SCH ×2 (09:12→20:14)
[2023-01-31] MEDS: Rosuvastatin 10 MG TAB PO SCH (09:12)
[2023-01-31] MEDS: clonazePAM 0.5 MG TAB PO SCH ×3 (09:12→20:13)
[2023-01-31] MEDS: Liothyronine Sodium 5 MCG TAB PO SCH (09:13)
[2023-01-31] MEDS: predniSONE 5 MG TAB PO SCH (09:13)
[2023-01-31] MEDS: Mycophenolate 250 MG CAP PO SCH ×2 (09:14→20:16)
[2023-01-31] MEDS: Lacosamide 50 mg Tablet PO SCH ×2 (09:15→20:13)
[2023-01-31] MEDS: tiZANidine HCl 4 MG TAB PO PRN (10:35)
[2023-01-31] MEDS: OLANZapine 5 MG TAB PO SCH (20:14)
[2023-01-31] MEDS: lamoTRIgine 100 MG TAB PO SCH (20:14)
[2023-01-31] MEDS: Nitrofurantoin Macrocrystal 50 MG CAP PO SCH (20:16)
[2023-01-31] MEDS: Vilazodone Hcl [Viibryd] 40 MG Tablet PO SCH (20:17)
[2023-01-31] MEDS: HYDROmorphone 0.5 MG/0.5 ML SYRINGE SLOW IVP PRN (23:09)
[2023-02-01] MEDS: Levothyroxine Sodium 88 MCG TAB PO SCH (05:44)
[2023-02-01] MEDS: HYDROcodone/Acetaminophen 7.5/325 mg Tablet PO PRN ×4 (05:44→22:19)
[2023-02-01 06:40] LABS: #Eosinphils 0.4 thou/uL (0.0-0.7); #Monocytes 1.4 thou/uL (0.11-0.59); #Neutrophils 9.4 thou/uL (1.40-6.50); %Basophils 0.3 % (0.0-1.0); %Eosinophils 2.5 % (0.0-10.0); %Monocytes 9.7 % (0.0-10.0); %Neutrophils 66.1 % (42.0-75.0); Hematocrit 33.5 % (36.0-47.0); Hemoglobin 10.6 g/dL (12.0-16.0); Mean Corpuscular HGB CONC 31.6 g/dL (32.0-36.0); Mean Corpuscular Hemoglobin 29.4 pg (27.0-31.0); Mean Corpuscular Volume 93.1 fl (78.0-98.0); Mean Platelet Volume 10.1 fL (7.4-10.4); Platelet Count 370 10x3/uL (130-400); RBC Distribution Width 16.7 % (11.5-14.5); White Blood Cell (WBC) Count 14.2 10x3/uL (4.8-10.8)
[2023-02-01] MEDS: HYDROmorphone 0.5 MG/0.5 ML SYRINGE SLOW IVP PRN (06:57)
[2023-02-01] MEDS: Lithium Carbonate 150 MG CAP PO SCH ×2 (09:21→22:23)
[2023-02-01] MEDS: predniSONE 5 MG TAB PO SCH (09:21)
[2023-02-01] MEDS: Rosuvastatin 10 MG TAB PO SCH (09:21)
[2023-02-01] MEDS: clonazePAM 0.5 MG TAB PO SCH ×3 (09:21→22:21)
[2023-02-01] MEDS: Gabapentin 300 MG CAP PO SCH ×2 (09:22→22:17)
[2023-02-01] MEDS: Lacosamide 50 mg Tablet PO SCH ×2 (09:22→22:21)
[2023-02-01] MEDS: Liothyronine Sodium 5 MCG TAB PO SCH (09:22)
[2023-02-01] MEDS: Mycophenolate 250 MG CAP PO SCH ×2 (09:22→22:21)
[2023-02-01] MEDS ORDERED: HYDROmorphone 0.5 MG/0.5 ML SYRINGE SLOW IVP SCH (11:00)
[2023-02-01] MEDS: tiZANidine HCl 4 MG TAB PO PRN ×2 (12:29→22:33)
[2023-02-01] MEDS: lamoTRIgine 100 MG TAB PO SCH ×2 (22:17→22:19)
[2023-02-01] MEDS: Nitrofurantoin Macrocrystal 50 MG CAP PO SCH (22:22)
[2023-02-01] MEDS: Vilazodone Hcl [Viibryd] 40 MG Tablet PO SCH (22:22)
[2023-02-01] MEDS: OLANZapine 5 MG TAB PO SCH (22:23)
[2023-02-02] MEDS: HYDROcodone/Acetaminophen 7.5/325 mg Tablet PO PRN ×4 (05:32→18:28)
[2023-02-02] MEDS: tiZANidine HCl 4 MG TAB PO PRN ×2 (05:33→20:55)
[2023-02-02] MEDS: Levothyroxine Sodium 88 MCG TAB PO SCH (05:33)
[2023-02-02] MEDS: Rosuvastatin 10 MG TAB PO SCH (09:57)
[2023-02-02] MEDS: predniSONE 5 MG TAB PO SCH (09:57)
[2023-02-02] MEDS: clonazePAM 0.5 MG TAB PO SCH ×3 (09:57→20:56)
[2023-02-02] MEDS: Lithium Carbonate 150 MG CAP PO SCH ×2 (09:57→20:54)
[2023-02-02] MEDS: Liothyronine Sodium 5 MCG TAB PO SCH (09:57)
[2023-02-02] MEDS: Lacosamide 50 mg Tablet PO SCH ×2 (09:58→20:59)
[2023-02-02] MEDS: Gabapentin 300 MG CAP PO SCH ×2 (09:58→20:57)
[2023-02-02] MEDS: Mycophenolate 250 MG CAP PO SCH ×2 (09:58→20:57)
[2023-02-02] MEDS: Nitrofurantoin Macrocrystal 50 MG CAP PO SCH (20:54)
[2023-02-02] MEDS: OLANZapine 5 MG TAB PO SCH (20:56)
[2023-02-02] MEDS: Vilazodone Hcl [Viibryd] 40 MG Tablet PO SCH (20:59)
[2023-02-03] MEDS: HYDROmorphone 0.5 MG/0.5 ML SYRINGE SLOW IVP PRN (00:07)
[2023-02-03] MEDS: HYDROcodone/Acetaminophen 7.5/325 mg Tablet PO PRN ×3 (04:18→14:04)
[2023-02-03] MEDS: Levothyroxine Sodium 88 MCG TAB PO SCH (04:19)
[2023-02-03 08:56] VITALS: TEMP 97.8
[2023-02-03] MEDS: Lacosamide 50 mg Tablet PO SCH (09:09)
[2023-02-03] MEDS: tiZANidine HCl 4 MG TAB PO PRN (09:09)
[2023-02-03] MEDS: Lithium Carbonate 150 MG CAP PO SCH (09:09)
[2023-02-03] MEDS: clonazePAM 0.5 MG TAB PO SCH ×2 (09:09→14:04)
[2023-02-03] MEDS: predniSONE 5 MG TAB PO SCH (09:09)
[2023-02-03] MEDS: Rosuvastatin 10 MG TAB PO SCH (09:10)
[2023-02-03] MEDS: Liothyronine Sodium 5 MCG TAB PO SCH (09:10)
[2023-02-03] MEDS: Gabapentin 300 MG CAP PO SCH (09:10)
[2023-02-03] MEDS: Mycophenolate 250 MG CAP PO SCH (09:10)
[2023-02-03 13:09] VITALS: BP 132/77
== END 2023-02-03 15:51 | disposition home health service (06) | DRG 454 ==
LOC: SURG A 01-29 05:42
PROVIDERS: ADMIT Neurological Surgery; ATTEND Internal Medicine Critical Care Medicine
PROC: 0RG20A0 Fusion of 2 or more Cervical Vertebral Joints with Interbody Fusion Device, Anterior Approach, Anterior Column, Open Approach (ICD-10-PCS; principal; 2023-01-29)
PROC: 00NW0ZZ Release Cervical Spinal Cord, Open Approach (ICD-10-PCS; 2023-01-29)
PROC: 0RB30ZZ Excision of Cervical Vertebral Disc, Open Approach (ICD-10-PCS; 2023-01-29)
PROC: 01N10ZZ Release Cervical Nerve, Open Approach (ICD-10-PCS; 2023-01-29)
PROC: 0RP104Z Removal of Internal Fixation Device from Cervical Vertebral Joint, Open Approach (ICD-10-PCS; 2023-01-29)
PROC: 0RG2071 Fusion of 2 or more Cervical Vertebral Joints with Autologous Tissue Substitute, Posterior Approach, Posterior Column, Open Approach (ICD-10-PCS; 2023-01-29)
PROC: 0PS304Z Reposition Cervical Vertebra with Internal Fixation Device, Open Approach (ICD-10-PCS; 2023-01-29)
DX: M50.01 Cervical disc disorder with myelopathy, high cervical region (principal); D62 Acute posthemorrhagic anemia; M86.9 Osteomyelitis, unspecified; M35.1 Other overlap syndromes; M48.52XA Collapsed vertebra, not elsewhere classified, cervical region, initial encounter for fracture; M50.021 Cervical disc disorder at C4-C5 level with myelopathy; M43.26 Fusion of spine, lumbar region; F41.9 Anxiety disorder, unspecified; M19.90 Unspecified osteoarthritis, unspecified site; J45.909 Unspecified asthma, uncomplicated; G89.29 Other chronic pain; I10 Essential (primary) hypertension; E07.9 Disorder of thyroid, unspecified; E78.5 Hyperlipidemia, unspecified; F31.9 Bipolar disorder, unspecified; G62.9 Polyneuropathy, unspecified; G40.909 Epilepsy, unspecified, not intractable, without status epilepticus; E03.9 Hypothyroidism, unspecified; Z90.710 Acquired absence of both cervix and uterus; Z89.512 Acquired absence of left leg below knee; Z98.1 Arthrodesis status; Z98.890 Other specified postprocedural states; Z79.899 Other long term (current) drug therapy; Z88.2 Allergy status to sulfonamides; Z88.5 Allergy status to narcotic agent; Z91.013 Allergy to seafood; Z91.018 Allergy to other foods; Z98.891 History of uterine scar from previous surgery; Z82.49 Family history of ischemic heart disease and other diseases of the circulatory system; Z83.3 Family history of diabetes mellitus
CPT/HCPCS: 36415; 36416; 71045; 80048; 80053; 83605; 85025; 93970; C1713; J0171; J1100; J1170; J2001; J2370; J2405; J2704; J3010; J3370; J3490; J7030; J7512; J7517; S0020